=== PATIENT | female | born 1985 | race American Indian/Alaskan Native ===

== ENCOUNTER 2018-08-09 13:05 | Inpatient (IN) | payer MEDICAID ==
[2018-08-09] MEDS ORDERED: ZOFRAN IV PRN (15:41)
[2018-08-09] MEDS ORDERED: SUBLIMAZE IV PRN (15:41)
[2018-08-09] MEDS ORDERED: MINERAL OIL PO PRN (15:41)
[2018-08-09] MEDS ORDERED: BRETHINE SUB-Q PRN (15:41)
[2018-08-09] MEDS ORDERED: XYLOCAINE 2% INFILTRATI ONE (15:41)
[2018-08-09] MEDS ORDERED: BRETHINE IVP PRN (15:41)
--- NOTE | 2018-08-09 15:49 | History and Physical Report ---
<GAIL LOVELACE - Last Filed: 08/09/18 16:08> History of Present Illness Date of admission: 08/09/18 13:06 History of present illness: EDC Confirmation: 08/06/2018 Gestational Age: 15 3/7 weeks Past History : 5 Term Births: 4 Living Children: 4 Para: 4 # 1 Delivery date: 2000 Weeks Gestation: 36 Delivery type: Anesthesia type: epidural Delivery location: [place] [facility] Sex: Male weight: 7-0 # 2 Delivery date: 2003 Weeks Gestation: term Delivery type: Anesthesia type: epidural Delivery location: [place] Sex: Male weight: 7-2 # 3 Delivery date: 2006 Weeks Gestation: term Delivery type: Anesthesia type: epidural Delivery location: [place] Sex: Female weight: 7-2 Comments: elevated blood pressure # 4 Delivery date: 2009 Weeks Gestation: term Delivery type: Anesthesia type: epidural Delivery location: [place] [facility] Sex: Male weight: 7-3 Past Medical History: Negative Past Medical History Past Surgical History: Negative Past Surgical History Past Medical History Surgery (Non-securities consultant): Negative Past Surgical History Abnormal PAP: negative IZZY Exposure: negative Infertility: negative Uterine Anomaly: negative Uterine Surgery (not C/S): negative Other Gynecologic Problems: negative Social Hx: Patient is single Smoking History: Patient currently smokes every day. Patient has been counseled to quit. Infection History Hx of STD: none HIV Risk Eval: low risk Hepatitis B Risk Eval: low risk Personal hx. of genital herpes: no Partner hx. of genital herpes: no Varicella/Chicken Pox Status: Previous Disease TB Risk: no Genetic History Congenital Heart Defect: Mom: no Dad: no Fiona Disease: Mom: no Dad: no Thalassemia Mom: no Dad: yes Comments: FOB Neural Tube Defect Mom: no Dad: no Down's Syndrome Mom: no Dad: no Yobany-Sachs Mom: no Dad: no Sickle Cell Disease/Trait Mom: no Dad: no Hemophilia Mom: no Dad: no Muscular Dystrophy Mom: no Dad: no Cystic Fibrosis Mom: no Dad: no Curly Chorea Mom: no Dad: no Mental Retardation Mom: no Dad: no Fragile X Mom: no Dad: no Other Genetic/Chromosomal Disorder Mom: no Dad: no Child w/other defect Mom: no Dad: no Enviromental Exposures Xray Exposure: no Medication, drug, or alcohol use since LMP: no Chemical/Other Exposure: no Exposure to Cat Liter: no Hx of Parvovirus (Fifth Disease): no Occupational Exposure to Children: none Active Medications (reviewed today): None Current Allergies (reviewed today): No known allergies Medications and Allergies Allergies Allergy/AdvReac Type Severity Reaction Status Date / Time No Known Allergies Allergy Verified 07/27/14 08:34 Home Medications Medication Instructions Recorded Confirmed Last Taken Type Doxycycline [Vibramycin CAP] 100 mg PO BID #20 capsule 07/27/14 Unknown Rx HYDROcodone/ACETAMINOPHEN [Johnson 1 each PO Q6HR #20 tablet 07/27/14 Unknown Rx 5/325 Tablet] Ibuprofen [Motrin] 600 mg PO Q8H PRN #50 tablet 07/27/14 Unknown Rx Cyclobenzaprine [Flexeril] 10 mg PO Q12HR PRN #15 tablet 10/26/16 Unknown Rx Ibuprofen [Motrin 800 MG tab] 800 mg PO Q8HR #21 tablet 10/26/16 Unknown Rx traMADol [Ultram 50 MG tab] 50 mg PO Q4HR PRN #10 tablet 10/26/16 Unknown Rx Active Meds: Active Medications Ephedrine Sulfate (Ephedrine Sulfate) 10 mg IV Q2M PRN PRN Reason: Hypotension Fentanyl (Sublimaze) 100 mcg IV Q2H PRN PRN Reason: Labor Pain Ampicillin Sodium (Polycillin/Ns 2 Gm/100 Ml) 2 gm in 100 mls @ 100 mls/hr IV ONCE ONE; Protocol Stop: 08/09/18 17:04 Ampicillin Sodium (Ampicillin/Ns 1 Gm/50 Ml) 1 gm in 50 mls @ 100 mls/hr IV Q4H ESTELLA; Protocol Lactated Ringer's (Lactated Ringers) 1,000 mls @ 125 mls/hr IV DIRECT ESTELLA Oxytocin/Sodium Chloride (Pitocin/Ns 20 Unit/1000ml Drip) 20 units in 1,000 mls @ 125 mls/hr IV DIRECT ESTELLA Oxytocin/Sodium Chloride (Pitocin/Ns 30 Unit/500ml) 30 units in 500 mls @ 4 mls /hr IV TITR ESTELLA; Protocol Lidocaine (Xylocaine 2%) 20 ml INFILTRATI ONCE ONE Stop: 08/09/18 15:42 Mineral Oil (Mineral Oil) 30 ml PO QHS PRN PRN Reason: Constipation Ondansetron HCl (Zofran) 4 mg IV Q8H PRN PRN Reason: Nausea And Vomiting Terbutaline Sulfate (Brethine) 0.25 mg SUB-Q ONCE PRN PRN Reason: Hyperstimulation/Hypertonicity Terbutaline Sulfate (Brethine) 0.25 mg IVP ONCE PRN PRN Reason: Hyperstimulation/Hypertonicity - Vital Signs Vital signs: Vital Signs Pulse BP 78 116/84 08/09/18 13:36 08/09/18 13:36 Temp Pulse Resp BP Pulse Ox 97.9 F 78 16 116/84 08/09/18 13:56 08/09/18 13:36 08/09/18 13:56 08/09/18 13:36 Results Result Diagrams: 08/09/18 15:00 Abnormal lab results 08/09/18 Range/Units 15:00 WBC 11.4 H (4.5-11.0) K/mm3 RBC 3.39 L (3.65-5.03) M/mm3 MCV 101 H (79-97) fl MCH 34 H (28-32) pg RDW 12.9 L (13.2-15.2) % All other labs normal. HBsAg Screen Negative Negative *1 RPR Non Reactive Non Reactive *2 Rubella Antibodies, IgG 3.93 index Immune >0.99 *3 Non-immune <0.90 Equivocal 0.90 - 0.99 Immune >0.99 ABO Grouping B *4 Rh Factor Positive *5 Please note: Prior records for this patient's ABO / Rh type are not available for additional verification. Antibody Screen Negative Negative *6 WBC 8.5 x10E3/uL 3.4-10.8 *7 RBC [L] 3.17 x10E6/uL 3.77-5.28 *8 Hemoglobin [L] 10.0 g/dL 11.1-15.9 *9 Hematocrit [L] 31.1 % 34.0-46.6 *10 MCV [H] 98 fL 79-97 *11 MCH 31.5 pg 26.6-33.0 *12 MCHC 32.2 g/dL 31.5-35.7 *13 RDW 13.2 % 12.3-15.4 *14 Platelets 270 x10E3/uL 150-379 *15 Neutrophils 69 % Not Estab. *16 Lymphs 25 % Not Estab. *17 Monocytes 5 % Not Estab. *18 Eos 0 % Not Estab. *19 Basos 0 % Not Estab. *20 ! Immature Cells <No Reported Value> *21 Neutrophils (Absolute) 6.0 x10E3/uL 1.4-7.0 *22 Lymphs (Absolute) 2.1 x10E3/uL 0.7-3.1 *23 Monocytes(Absolute) 0.4 x10E3/uL 0.1-0.9 *24 Eos (Absolute) 0.0 x10E3/uL 0.0-0.4 *25 Baso (Absolute) 0.0 x10E3/uL 0.0-0.2 *26 ! Immature Granulocytes 1 % Not Estab. *27 ! Immature Grans (Abs) 0.1 x10E3/uL 0.0-0.1 *28 ! NRBC <No Reported Value> *29 Hematology Comments: <No Reported Value> *30 Tests: (2) AFP Tetra ([id number]) ! Results Report *31 ! Test Results: *Screen Negative* *32 Tests: (3) Cystic Fibrosis Profile (574489) ! CF, Screen Comment: *55 RESULTS: Negative for 32 mutations analyzed Tests: (4) HB Solu + Rflx Frac (352241) Hemoglobin (Hgb) Solubility [A] Positive Negative *57 Tests: (5) Hemoglobin Frac.w/o Solubility (654506) ! Hgb F 1.1 % 0.0-2.0 *58 ! Hgb A [L] 60.5 % 96.4-98.8 *59 ! Hgb S [H] 34.6 % 0.0 *60 ! Hgb C 0.0 % 0.0 *61 ! Hgb A2 [H] 3.8 % 1.8-3.2 *62 ! Hgb Variant <No Reported Value> *63 ! Interpretation HGAS1 *64 Hemoglobin pattern and concentration are consistent with sickle cell trait (heterozygous). Suggest clinical and hematologic correlation. Sickle Trait Interpretation Ranges Hgb A 50.0 - 70.0% Hgb S 30.0 - 45.0% Hgb A2 3.0 - 5.0%* *Hgb A2 values are seen to be increased over normal levels. This increase is typically due to interference from co-eluting Hgb S-subunits with the HPLC method and therefore the Hgb A2 interpretation ranges have been adjusted. Tests: (6) Panel 871909 ([id number]) HIV Screen 4th Generation wRfx Non Reactive Non Reactive *65 Tests: (7) HCV Ab w/Rflx to Verification ([id number]) ! HCV Ab <0.1 s/co ratio 0.0-0.9 *66 Tests: (8) Comment: ([id number]) ! Comment: SPRCS *67 Non reactive HCV antibody screen is consistent with no HCV infection, unless recent infection is suspected or other evidence exists to indicate HCV infection. Tests: (9) Urine Culture, Routine ([id number]) Urine Culture, Routine Final report *68 Tests: (10) Result ([id number]) ! Result 1 MUG *69 Mixed urogenital nayeli 25,000-50,000 colony forming units per mL <ASHLEY WILKINS - Last Filed: 08/09/18 16:13> History of Present Illness Date of examination: 08/09/18 Chief complaint: pelvic pressure and contractions, SVE 5cms Past History Past Medical History: other (see HPI) Past Surgical History: other (see HPI) LINEMAN A CLASS History: other Family/Genetic History: other (see HPI) - Obstetrical History Expected Date of Delivery: 08/06/18 Actual Gestation: 40 Week(s) 3 Day(s) : 5 Para: 4 Hx # Term Pregnancies: 4 Spontaneous Abortions: 0 Induced : 0 Number of Living Children: 4 Medications and Allergies Active Meds: Active Medications Ephedrine Sulfate (Ephedrine Sulfate) 10 mg IV Q2M PRN PRN Reason: Hypotension Fentanyl (Sublimaze) 100 mcg IV Q2H PRN PRN Reason: Labor Pain Ampicillin Sodium (Polycillin/Ns 2 Gm/100 Ml) 2 gm in 100 mls @ 100 mls/hr IV ONCE ONE; Protocol Stop: 08/09/18 16:40 Ampicillin Sodium (Ampicillin/Ns 1 Gm/50 Ml) 1 gm in 50 mls @ 100 mls/hr IV Q4HR ESTELLA; Protocol Lactated Ringer's (Lactated Ringers) 1,000 mls @ 125 mls/hr IV DIRECT ESTELLA Oxytocin/Sodium Chloride (Pitocin/Ns 20 Unit/1000ml Drip) 20 units in 1,000 mls @ 125 mls/hr IV DIRECT ESTELLA Oxytocin/Sodium Chloride (Pitocin/Ns 30 Unit/500ml) 30 units in 500 mls @ 4 mls /hr IV TITR ESTELLA; Protocol Lidocaine (Xylocaine 2%) 20 ml INFILTRATI ONCE ONE Stop: 08/09/18 15:42 Mineral Oil (Mineral Oil) 30 ml PO QHS PRN PRN Reason: Constipation Ondansetron HCl (Zofran) 4 mg IV Q8H PRN PRN Reason: Nausea And Vomiting Terbutaline Sulfate (Brethine) 0.25 mg SUB-Q ONCE PRN PRN Reason: Hyperstimulation/Hypertonicity Terbutaline Sulfate (Brethine) 0.25 mg IVP ONCE PRN PRN Reason: Hyperstimulation/Hypertonicity Review of Systems All systems: negative - Vital Signs Vital signs: Vital Signs Pulse BP 78 116/84 08/09/18 13:36 08/09/18 13:36 Temp Pulse Resp BP Pulse Ox 97.9 F 78 16 116/84 08/09/18 13:56 08/09/18 13:36 08/09/18 13:56 08/09/18 13:36 - Physical Exam Breasts: Positive: normal Cardiovascular: Regular rate Lungs: Positive: Clear to auscultation, Normal air movement Abdomen: Positive: normal appearance, soft Genitourinary (Female): Positive: normal external genitalia, normal perenium Vulva: both: normal Vagina: Positive: normal moisture Uterus: Positive: normal size, normal contour Anus/Rectum: Positive: normal perianal skin Extremities: Positive: normal Deep Tendon Reflex Grade: Normal +2 - Obstetrical FHR: category 1 Uterine Contraction Monitor Mode: External Uterine Contraction Pattern: Regular Uterine Tone Measurement Phase: Contraction Uterine Contraction Intensity: Mild Results Result Diagrams: 08/09/18 15:00 All other labs normal. Assessment and Plan 33y/o @ 40w3d arrived 5cms w/ contractions. GBS negative. Admission orders in EMR. Plan for augmentation and epidural PRN. - Patient Problems (1) 40 weeks gestation of Current Visit: Yes Status: Acute (2) Active labor at term Current Visit: Yes Status: Acute
[2018-08-09] MEDS ORDERED: PITOCin/NS 20 UNIT/1000ML DRIP 20 UNITS/1,000 ML BAG IV SCH ×2 (16:00→21:51)
[2018-08-09] MEDS ORDERED: PITOCin/NS 30 UNIT/500ML 30 UNITS/500 ML BAG IV SCH (16:00)
[2018-08-09 16:03] LABS: Hematocrit 34.3 % (30.3-42.9); Hemoglobin 11.4 gm/dl (10.1-14.3); Mean Corpuscular HGB Conc 33 % (30-34); Mean Corpuscular Hemoglobin 34 pg (28-32); Mean Corpuscular Volume 101 fl (79-97); Platelet Count 261 K/mm3 (140-440); Red Blood Count 3.39 M/mm3 (3.65-5.03); Red Cell Distribution Width 12.9 % (13.2-15.2)
[2018-08-09] MEDS ORDERED: POLYCILLIN/NS 2 GM/100 ML 2 GM/100 ML BAG IV ONE (16:05)
[2018-08-09] MEDS: LACTATED RINGERS 1,000 ML IV SCH ×2 (16:10→16:57)
--- NOTE | 2018-08-09 16:27 | Progress Note ---
Assessment and Plan patient doing well, AROM clear fluid. ivf open for epidural bolus. - Patient Problems (1) 40 weeks gestation of Current Visit: Yes Status: Acute (2) Active labor at term Current Visit: Yes Status: Acute Subjective - Subjective Date of service: 08/09/18 Principal diagnosis: IUP @ 40+3, labor Patient reports: movement normal, contractions Objective - Vital Signs Vital Signs: Vital Signs - 12hr 08/09/18 08/09/18 13:36 13:56 Temperature 97.9 F Pulse Rate 78 Respiratory 16 Rate Blood Pressure 116/84 - Exam Breasts: normal Cardiovascular: Regular rate Lungs: Clear to auscultation, Normal air movement Abdomen: Present: normal appearance, soft Vulva: both: normal Uterus: Present: normal FHR: auscultation normal, category 1 Uterine Contraction Monitor Mode: External Cervical Dilatation: 7 (vertex) Cervical Effacement Percentage: 100 station: -1 Uterine Contraction Frequency (min): 3-5 Uterine Contraction Duration: 60 Uterine Contraction Pattern: Regular Uterine Tone Measurement Phase: Contraction Uterine Contraction Intensity: Moderate Deep Tendon Reflex Grade: Normal +2 - Labs Labs: Abnormal Labs 08/09/18 15:00 WBC 11.4 H RBC 3.39 L MCV 101 H MCH 34 H RDW 12.9 L Laboratory Results - last 24 hr 08/09/18 15:00 WBC 11.4 H RBC 3.39 L Hgb 11.4 Hct 34.3 MCV 101 H MCH 34 H MCHC 33 RDW 12.9 L Plt Count 261
--- NOTE | 2018-08-09 16:52 | Anesthesia Consultation ---
Anesthesia Consult and Med Hx Date of service: 08/09/18 - Airway Anesthetic Teeth Evaluation: Good ROM Head & Neck: Adequate Mental/Hyoid Distance: Adequate Mallampati Class: Class II Intubation Access Assessment: Probably Good - Pre-Operative Health Status ASA Pre-Surgery Classification: ASA2 Proposed Anesthetic Plan: Epidural, Spinal - Pulmonary Hx Asthma: No - Cardiovascular System Hx Hypertension: No - Central Nervous System Hx Seizures: No Hx Psychiatric Problems: No - Endocrine Hx Renal Disease: No Hx Hypothyroidism: No Hx Hyperthyroidism: No - Hematic Hx Anemia: No Hx Sickle Cell Disease: Yes - Other Systems Hx Alcohol Use: No
[2018-08-09] MEDS ORDERED: NARCAN 2 MG/2 ML IV PRN (16:53)
[2018-08-09] MEDS ORDERED: fentaNYL-BUPIV 2 MCG/ML-0.125% 200 MCG/100 ML BAG EPIDURAL SCH (18:00)
[2018-08-09] MEDS ORDERED: METHERGINE IM ONE (18:52)
--- NOTE | 2018-08-09 18:54 | Procedure Note ---
OB Delivery Note - Delivery Date of Delivery: 08/09/18 ( male) Chief Development Officer: ASHLEY WILKINS Estimated blood loss: 300cc - Vaginal Delivery presentation: vertex Delivery position: OA Intrapartum events: none Delivery induction: none Delivery augmentation: rupture of membranes, pitocin Delivery monitor: external FHT, external uterine Route of delivery: Delivery placenta: spontaneous Delivery cord: 3 umbilical vessels Episiotomy: none Delivery laceration: none Anesthesia: epidural Delivery comments: Male del over intact perineum, CHATA. infant placed skin to skin on mother 's abdomen. 3 vessel cord clamped and cut. Placenta del complete and intact. Pit to IVF. no lacerations to repair. Apgars 8/9, weight 6#10, EBL 300. Mother and infant remain LDR stable. - A at 1 minute: 8 at 5 minutes: 9 Infant Gender: Male (6#10)
[2018-08-09] MEDS ORDERED: AMPICILLIN/NS 1 GM/50 ML 1 GM/50 ML BAG IV SCH (19:43)
[2018-08-09] MEDS ORDERED: SODIUM CHLORIDE FLUSH SYRINGE 10 ML IV PRN (21:51)
[2018-08-09] MEDS ORDERED: BENADRYL PO PRN (21:51)
[2018-08-09] MEDS ORDERED: DULCOLAX PR PRN (21:51)
[2018-08-09] MEDS ORDERED: TYLENOL PO PRN (21:51)
[2018-08-09] MEDS ORDERED: MILK OF MAGNESIA PO PRN (21:51)
[2018-08-09] MEDS ORDERED: DERMOPLAST TP PRN (21:51)
[2018-08-09] MEDS ORDERED: TUCKS PAD TP PRN (21:51)
[2018-08-09] MEDS ORDERED: PHENERGAN PO PRN (21:51)
[2018-08-09] MEDS ORDERED: LANSINOH TP PRN (21:51)
[2018-08-09] MEDS: NORCO 5/325 PO PRN (22:03)
[2018-08-09] MEDS: MOTRIN PO SCH (23:27)
[2018-08-10] MEDS: MOTRIN PO SCH ×4 (05:14→23:42)
--- NOTE | 2018-08-10 07:09 | Progress Note ---
Assessment and Plan - Patient Problems (1) (normal spontaneous vaginal delivery) Onset Date: ~08/09/18 Current Visit: Yes Status: Acute Plan to address problem: Continue pathway VSS FF below umb Lochia scant H&H pending. Doing well s/p vag delivery P: d/c tomorrow Subjective - Subjective Date of service: 08/10/18 (resting; worried @ NB in NICU) Principal diagnosis: Interval history: EDC Confirmation: 08/06/2018 Gestational Age: 15 3/7 weeks Past History : 5 Term Births: 4 Living Children: 4 Para: 4 # 1 Delivery date: 1999 Weeks Gestation: 36 Delivery type: Anesthesia type: epidural Delivery location: [place] Sex: Male weight: 7-0 # 2 Delivery date: 2003 Weeks Gestation: term Delivery type: Anesthesia type: epidural Delivery location: [place] Sex: Male weight: 7-2 # 3 Delivery date: 2006 Weeks Gestation: term Delivery type: Anesthesia type: epidural Delivery location: [place] Sex: Female weight: 7-2 Comments: elevated blood pressure # 4 Delivery date: 2009 Weeks Gestation: term Delivery type: Anesthesia type: epidural Delivery location: [place] [facility] Sex: Male weight: 7-3 Past Medical History: Negative Past Medical History Past Surgical History: Negative Past Surgical History Past Medical History Surgery (Non-whiskey proof reader): Negative Past Surgical History Abnormal PAP: negative IZZY Exposure: negative Infertility: negative Uterine Anomaly: negative Uterine Surgery (not C/S): negative Other Gynecologic Problems: negative Social Hx: Patient is single Smoking History: Patient currently smokes every day. Patient has been counseled to quit. Infection History Hx of STD: none HIV Risk Eval: low risk Hepatitis B Risk Eval: low risk Personal hx. of genital herpes: no Partner hx. of genital herpes: no Varicella/Chicken Pox Status: Previous Disease TB Risk: no Genetic History Congenital Heart Defect: Mom: no Dad: no Fiona Disease: Mom: no Dad: no Thalassemia Mom: no Dad: yes Comments: FOB Neural Tube Defect Mom: no Dad: no Down's Syndrome Mom: no Dad: no Yobany-Sachs Mom: no Dad: no Sickle Cell Disease/Trait Mom: no Dad: no Hemophilia Mom: no Dad: no Muscular Dystrophy Mom: no Dad: no Cystic Fibrosis Mom: no Dad: no Curly Chorea Mom: no Dad: no Mental Retardation Mom: no Dad: no Fragile X Mom: no Dad: no Other Genetic/Chromosomal Disorder Mom: no Dad: no Child w/other defect Mom: no Dad: no Enviromental Exposures Xray Exposure: no Medication, drug, or alcohol use since LMP: no Chemical/Other Exposure: no Exposure to Cat Liter: no Hx of Parvovirus (Fifth Disease): no Occupational Exposure to Children: none Active Medications (reviewed today): None Current Allergies (reviewed today): No known allergies Patient reports: appetite normal, voiding normally, pain well controlled, ambulating normally [place]: in NICU (tachypenia) Objective - Vital Signs Latest vital signs: Vital Signs Temp Pulse Resp BP Pulse Ox 08/10/18 05:26 98.5 F 68 18 107/72 98 08/10/18 00:26 98.1 F 67 20 113/58 95 08/09/18 20:24 98.5 F 65 22 110/69 99 08/09/18 20:00 98.4 F 18 18 19:43 71 121/71 1818 19:37 74 122/71 18 19:19 86 125/76 18 18:53 76 98 18 18:48 91 H 95 18 18:46 98.6 F 18 18:43 84 99 18 18:38 85 99 18 18:36 86 121/70 18 18:33 94 H 98 18 18:28 93 H 96 18 18:27 69 122/80 1818 18:24 83 121/80 1818 18:23 80 98 1818 18:21 77 117/81 18 18:18 84 112/79 97 1818 18:15 76 117/79 18 18:13 81 98 18 18:12 70 113/81 18 18:09 80 110/82 1818 18:08 78 98 18 18:06 79 94 18 18:03 87 131/74 18 18:02 87 97 09/18/18 17:57 50 L 98 1818 17:54 74 94 18/18 17:52 72 98 1818 17:51 75 108/67 18/18 17:48 64 113/67 18/18 17:46 67 98 08/09/18 17:45 74 117/71 18/18 17:42 83 117/65 18/18 17:41 77 99 1818 17:39 80 122/77 18 17:37 88 128/63 86 1818 17:36 86 97 1818 17:33 85 118/73 18 17:31 75 98 18 17:30 78 136/70 18 17:27 68 116/76 18 17:26 69 99 18 17:24 73 119/76 94 18 17:21 76 119/83 99 18 17:18 95 H 132/89 08/09/18 17:16 95 H 98 18 17:11 88 97 18 17:06 98 H 90 18 17:03 82 92 18 17:01 86 97 18 16:56 82 98 18 16:51 79 97 18 16:46 87 98 18 16:41 85 98 1818 16:36 86 99 18 16:34 93 H 132/90 18 13:56 97.9 F 16 08/09/18 13:36 78 116/84 Intake and Output 1818 18 08/10/18 22:59 06:59 14:59 Intake Total 97.917 360 Output Total 300 900 Balance -202.083 -540 Intake: IV 97.917 Lactated Ringers 1,000 ml 97.917 @ 125 mls/hr IV DIRECT ESTELLA Rx#:[id number] Intake, Free Water 360 Output: Urine 300 900 Indwelling Catheter 300 Void 900 Other: Total, Output Amount 300 900 Estimated Blood Loss 300 - Exam Breasts: Present: normal Cardiovascular: Present: Regular rate Lungs: Present: Normal air movement Abdomen: Present: normal appearance, soft Uterus: Present: normal, fundal height below umbilicus Extremities: Present: normal Deep Tendon Reflex Grade: Normal +2 Incision: Present: normal, dry, intact - Labs Labs: Abnormal lab results 08/09/18 Range/Units 15:00 WBC 11.4 H (4.5-11.0) K/mm3 RBC 3.39 L (3.65-5.03) M/mm3 MCV 101 H (79-97) fl MCH 34 H (28-32) pg RDW 12.9 L (13.2-15.2) %
[2018-08-10 07:58] LABS: Hematocrit 26.7 % (30.3-42.9)
[2018-08-10] MEDS ORDERED: PRENATAL VITAMIN PO SCH (10:00)
[2018-08-10] MEDS: NORCO 5/325 PO PRN (11:45)
[2018-08-11] MEDS: MOTRIN PO SCH (05:06)
[2018-08-11] MEDS ORDERED: BOOSTRIX IM ONE (06:00)
--- NOTE | 2018-08-11 06:23 | Discharge Summary ---
Providers - Providers Date of Admission: 08/09/18 13:06 Date of discharge: 08/11/18 (pt agrees with d/c ) Attending physician: RAYO HARRIS Primary care physician: RAYO HARRIS Hospitalization Reason for admission: active labor Delivery: Episiotomy: none Laceration: none Incision: normal Other procedures: none complications: none Discharge diagnosis: IUP at term delivered [place] baby: male (NICU) Hospital course: uncomplicated vaginal delivery Pt resting No c/o voiced VSS FF below umb Lochia small Perineum intact No s/sx of anemia Doing well s/p vag delivery. P: d/c today with instructions RTO 1 week for circ and 4 weeks for PP care. Condition at discharge: Good Disposition: DC-01 TO HOME OR SELFCARE - Discharge Diagnoses (1) (normal spontaneous vaginal delivery) Status: Acute Plan - Discharge Medications Prescriptions: Ibuprofen [Motrin 800 MG tab] 800 mg PO Q8HR PRN #30 tablet PRN Reason: Pain Lidocain2.5%/Prilocai2.5% [Emla] 5 gm TP ONCE PRN #1 tube PRN Reason: Pain - Provider Discharge Summary Activity: routine, no sex for 6 weeks, no heavy lifting 4 weeks, no strenuous exercise Diet: routine Instructions: routine Additional instructions: [] Smoking cessation referral if applicable(refer to patient education folder for contact #) [] Refer to [facility] Booklet Call your doctor immediately for: * Fever > 100.5 * Heavy vaginal bleeding ( >1 pad per hour) * Severe persistent headache * Shortness of breath * Reddened, hot, painful area to leg or breast * Drainage or odor from incision. * Keep incision clean and dry at all times and follow doctor's instructions regarding bathing/showering - Follow up plan Follow up: RAYO HARRIS MD [Primary Care Provider] - 7 Days (Congratulations! Please call [phone] to schedule your son's circumcision in 1 week and your visit in 4 weeks. Bring the EMLA cream with you to his visit. Do NOT use at home. Take medications as prescribed. Call with any concerns.)
[2018-08-11 09:06] VITALS: BP 115/69
== END 2018-08-11 09:30 | disposition home or self-care (01) | DRG 775 ==
LOC: TRG 13:05 → LD 13:06 → TRG 13:07 → OB 21:21
PROVIDERS: ADMIT Obstetrics & Gynecology; ATTEND Obstetrics & Gynecology
PROC: 10E0XZZ Delivery of Products of Conception, External Approach (ICD-10-PCS; principal; 2018-08-09)
PROC: 3E0R3BZ Introduction of Anesthetic Agent into Spinal Canal, Percutaneous Approach (ICD-10-PCS; 2018-08-09)
PROC: 00HU33Z Insertion of Infusion Device into Spinal Canal, Percutaneous Approach (ICD-10-PCS; 2018-08-09)
DX: O99.334 Smoking (tobacco) complicating childbirth (principal); Z3A.40 40 weeks gestation of pregnancy; Z37.0 Single live birth; F17.210 Nicotine dependence, cigarettes, uncomplicated
CPT/HCPCS: 36415; 85014; 85018; 85027; 86592; 86850; 86900; 86901; J2210; J2590; J7120

== ENCOUNTER 2019-09-11 18:38 | Inpatient (IN) | payer MEDICAID ==
[2019-09-11] MEDS ORDERED: ZOFRAN IV PRN (19:42)
[2019-09-11] MEDS ORDERED: SUBLIMAZE IV PRN (19:42)
[2019-09-11] MEDS ORDERED: BRETHINE SUB-Q PRN (19:42)
[2019-09-11] MEDS ORDERED: XYLOCAINE 2% INFILTRATI ONE (19:42)
[2019-09-11] MEDS ORDERED: MINERAL OIL PO PRN (19:42)
[2019-09-11] MEDS ORDERED: NALOXONE IV PRN (19:42)
[2019-09-11] MEDS ORDERED: BRETHINE IVP PRN (19:42)
[2019-09-11] MEDS ORDERED: STADOL IV PRN (19:42)
[2019-09-11] MEDS ORDERED: PITOCin/NS 30 UNIT/500ML 30 UNITS/500 ML BAG IV SCH (20:00)
[2019-09-11] MEDS ORDERED: LACTATED RINGERS 1,000 ML IV SCH (20:00)
[2019-09-11] MEDS ORDERED: PITOCin/NS 20 UNIT/1000ML DRIP 20 UNITS/1,000 ML BAG IV SCH (20:00)
[2019-09-11 21:49] LABS: Hematocrit 32.1 % (30.3-42.9); Hemoglobin 10.8 gm/dl (10.1-14.3); Mean Corpuscular HGB Conc 34 % (30-34); Mean Corpuscular Volume 101 fl (79-97); Platelet Count 276 K/mm3 (140-440); Red Blood Count 3.17 M/mm3 (3.65-5.03); Red Cell Distribution Width 13.3 % (13.2-15.2)
--- NOTE | 2019-09-11 23:08 | History and Physical Report ---
History of Present Illness Date of examination: 09/11/19 Date of admission: 09/11/19 21:04 Chief complaint: contractions History of present illness: Pt is a 34 year old -[place] female PRABHJOT 09/11/19 at 40w0d who presents with irregular contractions and advanced cervical dilation of 6 cm. She denies leakage of fluid or vaginal bleeding. She has had care at [facility] since 20 wks complicated by late entry to care, grandmultiparity, alpha thalassemia carrier status, genital herpes without lesion or prodrome, sickle cell trait with father of baby also with sickle cell trait, and undesired fertility. She is GBS negative. 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 RUNNER History: herpes (wisdom tooth extraction ) Social history: no significant social history - Obstetrical History Expected Date of Delivery: 09/11/19 Actual Gestation: 40 Week(s) 0 Day(s) : 7 Para: 5 Hx # Term Pregnancies: 5 Number of Pregnancies: 0 Spontaneous Abortions: 1 Induced : 0 Number of Living Children: 5 Medications and Allergies Allergies Allergy/AdvReac Type Severity Reaction Status Date / Time No Known Allergies Allergy Verified 07/27/14 08:34 Home Medications Medication Instructions Recorded Confirmed Last Taken Type Vit-Fe Fumar-FA [ 1 tab PO DAILY 09/11/19 09/11/19 09/10/19 History Vitamin] Active Meds: Active Medications Butorphanol Tartrate (Stadol) 2 mg IV Q2H PRN PRN Reason: Pain , Severe (7-10) Ephedrine Sulfate (Ephedrine Sulfate) 10 mg IV Q2M PRN PRN Reason: Hypotension Fentanyl (Sublimaze) 100 mcg IV Q2H PRN PRN Reason: Labor Pain Oxytocin/Sodium Chloride (Pitocin/Ns 20 Unit/1000ml Drip) 20 units in 1,000 mls @ 125 mls/hr IV DIRECT ESTELLA Oxytocin/Sodium Chloride (Pitocin/Ns 30 Unit/500ml) 30 units in 500 mls @ 4 mls/hr IV TITR ESTELLA; Protocol Last Admin: 09/11/19 21:35 Dose: 4 mls/hr, 4 mls/hr Documented by: Lactated Ringer's (Lactated Ringers) 1,000 mls @ 125 mls/hr IV DIRECT ESTELLA Last Admin: 09/11/19 21:20 Dose: 125 mls/hr Documented by: Mineral Oil (Mineral Oil) 30 ml PO QHS PRN PRN Reason: Constipation Naloxone HCl (Narcan 0.4 Mg/1 Ml) 0.1 mg IV Q2MIN PRN PRN Reason: Res Rate </= 8 or 02 SAT < 92% Ondansetron HCl (Zofran) 4 mg IV Q8H PRN PRN Reason: Nausea And Vomiting Terbutaline Sulfate (Brethine) 0.25 mg SUB-Q ONCE PRN PRN Reason: Hyperstimulation/Hypertonicity Terbutaline Sulfate (Brethine) 0.25 mg IVP ONCE PRN PRN Reason: Hyperstimulation/Hypertonicity Review of Systems All systems: negative - Vital Signs Vital signs: Vital Signs Pulse BP 98 H 117/71 09/11/19 19:23 09/11/19 19:23 Temp Pulse Resp BP Pulse Ox 96.5 F L 102 H 18 110/78 99 09/11/19 20:56 09/11/19 22:40 09/11/19 20:56 09/11/19 22:37 09/11/19 22:40 - Physical Exam Breasts: Positive: deferred Cardiovascular: Regular rate Lungs: Positive: Clear to auscultation Abdomen: Positive: soft (gravid ) Genitourinary (Female): Positive: normal external genitalia Uterus: Positive: enlarged (gravid) Extremities: Positive: normal - Obstetrical FHR: auscultation normal Uterine Contraction Monitor Mode: External Cervical Dilatation: 8 Cervical Effacement Percentage: 80 station: 0 Uterine Contraction Pattern: Irregular Uterine Tone Measurement Phase: Resting Uterine Contraction Intensity: Moderate Results Result Diagrams: 09/11/19 20:55 Abnormal lab results 09/11/19 Range/Units 20:55 RBC 3.17 L (3.65-5.03) M/mm3 MCV 101 H (79-97) fl MCH 34 H (28-32) pg All other labs normal. Assessment and Plan A: IUP at 40w0d Transitional Labor GBS Negative Genital Herpes without lesion or prodrome P: Admit to labor an delivery Routine intrapartum care Anticipate vaginal delivery
--- NOTE | 2019-09-11 23:13 | Procedure Note ---
OB Delivery Note - Delivery Date of Delivery: 09/11/19 Surgeon: ERMA PAULSON Estimated blood loss: other (400 mL) - Vaginal Delivery presentation: vertex Delivery position: OA Delivery induction: none Delivery augmentation: rupture of membranes, pitocin Delivery monitor: external FHT, external uterine Route of delivery: Delivery placenta: spontaneous Episiotomy: none Delivery laceration: other (Labial abrasions, hemostatic without repair ) Anesthesia: none - A at 1 minute: 8 at 5 minutes: 9 Gender: Female (3019g (6lb 10 oz) @ 2251 pm)
[2019-09-11] MEDS ORDERED: TORADOL IV PRN (23:15)
[2019-09-12] MEDS ORDERED: PHENERGAN PR PRN (01:00)
[2019-09-12] MEDS ORDERED: BENADRYL PO PRN (01:00)
[2019-09-12] MEDS ORDERED: DULCOLAX PR PRN (01:00)
[2019-09-12] MEDS ORDERED: SODIUM CHLORIDE FLUSH SYRINGE 10 ML IV NR (01:00)
[2019-09-12] MEDS ORDERED: TYLENOL PO PRN (01:00)
[2019-09-12] MEDS ORDERED: DERMOPLAST TP PRN (01:00)
[2019-09-12] MEDS ORDERED: ZOFRAN IV PRN (01:00)
[2019-09-12] MEDS ORDERED: MILK OF MAGNESIA PO PRN (01:00)
[2019-09-12] MEDS ORDERED: PHENERGAN PO PRN (01:00)
[2019-09-12] MEDS ORDERED: LANSINOH TP PRN ×2 (01:00)
[2019-09-12] MEDS ORDERED: TUCKS PAD TP PRN (01:00)
[2019-09-12] MEDS: NORCO 5/325 PO PRN ×2 (01:23→15:55)
[2019-09-12] MEDS ORDERED: BOOSTRIX IM ONE (06:00)
[2019-09-12] MEDS ORDERED: M-M-R II VACCINE SUB-Q ONE (06:00)
[2019-09-12] MEDS: IBUPROFEN PO SCH ×4 (06:01→23:29)
--- NOTE | 2019-09-12 08:51 | Progress Note ---
Assessment and Plan A/P PPD1 routine PP care check CBC today Subjective - Subjective Date of service: 09/12/19 Principal diagnosis: s/p Patient reports: appetite normal, voiding normally, pain well controlled, flatus, ambulating normally : doing well Objective - Vital Signs Latest vital signs: Vital Signs Temp Pulse Resp BP BP Pulse Ox 09/12/19 07:33 98.1 F 66 16 114/71 97 09/12/19 04:59 98.0 F 69 20 112/69 99 09/12/19 01:10 98.6 F 68 20 125/71 100 09/12/19 00:33 97.1 F L 77 18 121/76 09/12/19 00:18 73 119/75 09/12/19 00:03 85 126/79 09/11/19 23:48 74 124/77 09/11/19 23:33 80 123/71 09/11/19 23:26 18 09/11/19 23:07 96.7 F L 100 H 18 108/73 108/73 09/11/19 22:49 97 H 69 L 09/11/19 22:45 85 99 09/11/19 22:40 102 H 99 09/11/19 22:38 96 H 0 L 09/11/19 22:37 137 H 110/78 09/11/19 22:28 90 100 09/11/19 22:23 80 100 09/11/19 22:18 91 H 99 09/11/19 22:13 78 100 09/11/19 22:08 85 100 09/11/19 22:06 94 H 118/78 09/11/19 22:03 85 100 09/11/19 21:58 83 100 09/11/19 21:53 77 99 09/11/19 21:48 80 100 09/11/19 21:43 80 98 09/11/19 21:38 83 100 09/11/19 21:33 83 98 09/11/19 21:28 78 100 09/11/19 21:23 78 100 09/11/19 21:17 80 99 09/11/19 21:12 77 99 09/11/19 20:56 96.5 F L 83 18 128/72 100 09/11/19 20:38 85 111/77 09/11/19 20:07 87 110/74 09/11/19 19:24 98.3 F 98 H 20 117/71 09/11/19 19:23 98 H 117/71 Intake and Output 09/11/19 09/12/19 09/12/19 23:59 07:59 15:59 Intake Total 1 Balance 1 Intake: IV 1 PITOCin/NS 30 UNIT/500ML 1 30 units In 500 ml @ 4 mls/hr IV TITR ESTELLA Rx#: [id number] Other: # Voids Void 1 Weight 77.111 kg Estimated Blood Loss 400 - Exam Breasts: Present: normal Cardiovascular: Present: Regular rate, Normal S1 Lungs: Present: Clear to auscultation, Normal air movement Abdomen: Present: normal appearance, soft, normal bowel sounds. Absent: distention, tenderness, guarding Vulva: both: normal Uterus: Present: normal, firm, fundal height below umbilicus. Absent: bogginess, tenderness Extremities: Present: normal Deep Tendon Reflex Grade: Normal +2 - Labs Labs: Abnormal lab results 09/11/19 Range/Units 20:55 RBC 3.17 L (3.65-5.03) M/mm3 MCV 101 H (79-97) fl MCH 34 H (28-32) pg
[2019-09-12] MEDS: FEOSOL PO SCH ×2 (10:00→23:29)
[2019-09-12] MEDS: COLACE PO SCH ×2 (10:00→23:29)
[2019-09-12 12:11] VITALS: BP 125/79
[2019-09-12 12:18] LABS: Hematocrit 25.8 % (30.3-42.9); Hemoglobin 8.6 gm/dl (10.1-14.3)
== END 2019-09-13 00:30 | disposition home or self-care (01) | DRG 774 ==
LOC: TRG 18:38 → LD 21:04 → OB 09-12 00:59
PROVIDERS: ADMIT Obstetrics & Gynecology; ATTEND Obstetrics & Gynecology
PROC: 10E0XZZ Delivery of Products of Conception, External Approach (ICD-10-PCS; principal; 2019-09-11)
PROC: 0UQMXZZ Repair Vulva, External Approach (ICD-10-PCS; 2019-09-11)
PROC: 3E0234Z Introduction of Serum, Toxoid and Vaccine into Muscle, Percutaneous Approach (ICD-10-PCS; 2019-09-12)
DX: O98.32 Other infections with a predominantly sexual mode of transmission complicating childbirth (principal); A60.00 Herpesviral infection of urogenital system, unspecified; O70.0 First degree perineal laceration during delivery; Z3A.40 40 weeks gestation of pregnancy; Z37.0 Single live birth; Z23 Encounter for immunization
CPT/HCPCS: 36415; 85014; 85018; 85027; 86592; 86850; 86900; 86901; 90471; 90715; G0378; J1885; J2590; J7120

== ENCOUNTER 2020-07-06 10:07 | Emergency (ER) | payer SELFPAY ==
[2020-07-06 10:17] VITALS: BP 113/73
--- NOTE | 2020-07-06 10:38 | Emergency Department Report ---
ED HPI - General Chief complaint: Vaginal Bleeding Stated complaint: POSS MISCARRIAGE Time Seen by Provider: 07/06/20 10:22 Source: patient Mode of arrival: Ambulatory Limitations: No Limitations - History of Present Illness Initial comments: This is a pleasant 35-year-old G3, L2 female presents the emergency department approximately 8 weeks with chief complaint of heavy vaginal bleeding that started yesterday and has since resolved. She reports she did have some lower abdominal cramping during this time that she rates as severe but this has also resolved. Her last menstrual cycle was April 22 to April 28 and normal. She took a test in May and it was positive. She had not yet seen an SENIOR PROGRAM ANALYST. She has a history of sickle cell trait. She denies any associated fever, chills, night sweats, headache, dizziness, blurry vision, nausea, vomiting, diarrhea, chest pain, shortness of breath. - Related Data Home Medications Medication Instructions Recorded Confirmed Last Taken Vit-Fe Fumar-FA [ 1 tab PO DAILY 09/11/19 09/11/19 09/10/19 Vitamin] Previous Rx's Medication Instructions Recorded Last Taken Type Acetaminophen [Acetaminophen TAB] 650 mg PO Q6HR PRN #30 tablet 07/06/20 Unknown Rx Allergies Allergy/AdvReac Type Severity Reaction Status Date / Time No Known Allergies Allergy Verified 07/27/14 08:34 ED Review of Systems ROS: Stated complaint: POSS MISCARRIAGE Other details as noted in HPI Comment: All other systems reviewed and negative Constitutional: denies: chills, fever Eyes: denies: eye pain, eye discharge, vision change ENT: denies: ear pain, throat pain Respiratory: denies: cough, shortness of breath, wheezing Cardiovascular: denies: chest pain, palpitations Endocrine: no symptoms reported Gastrointestinal: as per HPI, abdominal pain. denies: nausea, diarrhea Genitourinary: as per HPI, abnormal menses. denies: urgency, dysuria, discharge Musculoskeletal: denies: back pain, joint swelling, arthralgia Skin: denies: rash, lesions Neurological: denies: headache, weakness, paresthesias Psychiatric: denies: anxiety, depression Hematological/Lymphatic: denies: easy bleeding, easy bruising ED Past Medical Hx - Past Medical History Previous Medical History?: Yes Hx Hypertension: No Hx Congestive Heart Failure: No Hx Diabetes: No Hx Deep Vein Thrombosis: No Hx Renal Disease: No Hx Sickle Cell Disease: Yes (trait) Hx Seizures: No Hx Asthma: No Hx COPD: No Hx HIV: No Additional medical history: Vaginal delivery x 2 - Surgical History Past Surgical History?: No - Social History Smoking Status: Never Smoker Substance Use Type: None - Medications Home Medications: Home Medications Medication Instructions Recorded Confirmed Last Taken Type Vit-Fe Fumar-FA [ 1 tab PO DAILY 09/11/19 09/11/19 09/10/19 History Vitamin] Acetaminophen [Acetaminophen TAB] 650 mg PO Q6HR PRN #30 tablet 07/06/20 Unknown Rx ED Physical Exam - General Limitations: No Limitations General appearance: alert, in no apparent distress - Head Head exam: Present: atraumatic, normocephalic - Eye Eye exam: Present: normal appearance, PERRL, EOMI Pupils: Present: normal accommodation - ENT ENT exam: Present: normal exam, normal orophraynx, mucous membranes moist - Neck Neck exam: Present: normal inspection, full ROM. Absent: tenderness, meningismus, lymphadenopathy - Respiratory Respiratory exam: Present: normal lung sounds bilaterally. Absent: respiratory distress, wheezes, rales, rhonchi, stridor, chest wall tenderness - Cardiovascular Cardiovascular Exam: Present: regular rate, normal rhythm, normal heart sounds. Absent: systolic murmur, diastolic murmur, rubs, gallop - GI/Abdominal GI/Abdominal exam: Present: soft, normal bowel sounds. Absent: distended, tenderness, guarding, rebound, rigid - Extremities Exam Extremities exam: Present: normal inspection, full ROM, normal capillary refill. Absent: tenderness, calf tenderness - Back Exam Back exam: Present: normal inspection, full ROM. Absent: tenderness, CVA tenderness (R), CVA tenderness (L) - Neurological Exam Neurological exam: Present: alert, oriented X3 - Psychiatric Psychiatric exam: Present: normal affect, normal mood - Skin Skin exam: Present: warm, dry, intact, normal color. Absent: rash ED Course Vital Signs 07/06/20 07/06/20 10:14 10:31 Temperature 98.1 F Pulse Rate 115 H Respiratory 20 18 Rate Blood Pressure 113/73 O2 Sat by Pulse 97 99 Oximetry - Consultations Consultation #1: 07/06/20 14:02 I spoke with SENIOR PROGRAM ANALYST Dr. Swapna Paulson who recommended the patient call her office on Wednesday for a follow-up visit that day for repeat hCG and possibly ultrasound. ED Medical Decision Making - Lab Data Result diagrams: 07/06/20 10:22 Lab Results 07/06/20 07/06/20 07/06/20 Range/Units 10:22 10:22 10:22 WBC 7.6 (4.5-11.0) K/mm3 RBC 3.09 L (3.65-5.03) M/mm3 Hgb 10.4 (10.1-14.3) gm/dl Hct 29.9 L (30.3-42.9) % MCV 97 (79-97) fl MCH 34 H (28-32) pg MCHC 35 H (30-34) % RDW 13.4 (13.2-15.2) % Plt Count 252 (140-440) K/mm3 Lymph % (Auto) 25.9 (13.4-35.0) % [place] % (Auto) 5.3 (0.0-7.3) % Eos % (Auto) 0.6 (0.0-4.3) % Baso % (Auto) 0.8 (0.0-1.8) % Lymph # 2.0 (1.2-5.4) K/mm3 [place] # 0.4 (0.0-0.8) K/mm3 Eos # 0.0 (0.0-0.4) K/mm3 Baso # 0.1 (0.0-0.1) K/mm3 Seg Neutrophils % 67.4 (40.0-70.0) % Seg Neutrophils # 5.1 (1.8-7.7) K/mm3 HCG, Quant 5068 H (0-4) mIU/mL Blood Type B POSITIVE - Radiology Data Radiology results: report reviewed, image reviewed Ultrasound Report Signed Patient: BRAULIO RENDON MR#: [id number] : 1985 Acct:[id number] Age/Sex: 35 / F ADM Date: 07/06/20 Loc: ED Attending Dr: Ordering Physician: SAGE WHITT Date of Service: 07/06/20 Procedure(s): US OB <= 14 weeks fetus Accession Number(s): [id number] cc: SAGE WHITT ULTRASOUND OBSTETRIC INDICATION / CLINICAL INFORMATION: Vaginal bleeding. TECHNIQUE: Transabdominal and Transvaginal. COMPARISON: None available. FINDINGS: The uterus measures 8.2 x 4.5 x 6.1 cm. There is endometrial stripe measures 2.0 cm and contains solid material with blood flow. No gestational sac or yolk sac is identified. There is minimal free fluid in the pelvis without significant blood products or large volume of fluid. The left ovary appears normal. The right ovary is not visualized. IMPRESSION: No intrauterine or gestational sac identified. Thickened endometrium with internal solid products with flow could indicate some retained products of conception. Signer Name: Brayden Novoa MD Signed: 07/06/2020 1:28 PM Workstation Name: [id number] Transcribed By: RANDY Dictated By: Brayden Novoa MD Electronically Authenticated By: Brayden Novoa MD Signed Date/Time: 07/06/20 5106 - Medical Decision Making Patient is nontoxic in no acute distress. Vitals are stable. Her hCG was elevated at 5000. Her blood type is B+ and no RhoGam is indicated. She is hemodynamically stable with a normal H&H. She had very minimal bleeding at this time. I spoke with SENIOR PROGRAM ANALYST who recommended follow-up on Wednesday for repeat hCG and likely repeat ultrasound. Patient was given ectopic precautions including heavy bleeding greater than 1 pad an hour, dizziness, weakness or any other changing or worsening symptoms to return the emerge department really. She verbalized understanding of the diagnosis, treatment plan and follow-up instructions and all of her questions were answered. - Differential Diagnosis Incomplete , ectopic , threatened miscarriage Critical care attestation.: If time is entered above; I have spent that time in minutes in the direct care of this critically ill patient, excluding procedure time. ED Disposition Clinical Impression: Threatened miscarriage Disposition: DC-01 TO HOME OR SELFCARE Is pt being admited?: No Condition: Stable Instructions: Threatened Miscarriage (ED) Prescriptions: Acetaminophen [Acetaminophen TAB] 650 mg PO Q6HR PRN #30 tablet PRN Reason: Pain Referrals: PRIMARY CARE, [Primary Care Provider] - 3-5 Days SWAPNA PAULSON MD [Staff Physician] - 3-5 Days Time of Disposition: 14:05
[2020-07-06 10:53] LABS: Basophils # (Auto) 0.1 K/mm3 (0.0-0.1); Basophils % (Auto) 0.8 % (0.0-1.8); Eosinophils % (Auto) 0.6 % (0.0-4.3); Hematocrit 29.9 % (30.3-42.9); Hemoglobin 10.4 gm/dl (10.1-14.3); Lymphocytes % (Auto) 25.9 % (13.4-35.0); Mean Corpuscular HGB Conc 35 % (30-34); Mean Corpuscular Volume 97 fl (79-97); Monocytes # (Auto) 0.4 K/mm3 (0.0-0.8); Monocytes % (Auto) 5.3 % (0.0-7.3); Platelet Count 252 K/mm3 (140-440); Red Blood Count 3.09 M/mm3 (3.65-5.03); Red Cell Distribution Width 13.4 % (13.2-15.2)
--- NOTE | 2020-07-06 13:33 | Ultrasound Report ---
ULTRASOUND OBSTETRIC INDICATION / CLINICAL INFORMATION: Vaginal bleeding. TECHNIQUE: Transabdominal and Transvaginal. COMPARISON: None available. FINDINGS: The uterus measures 8.2 x 4.5 x 6.1 cm. There is endometrial stripe measures 2.0 cm and contains chas d material with blood flow. No gestational sac or yolk sac is identified. There is minimal free fluid in the pelvis without significant blood products or large volume of fluid. The left ovary appears normal. The right ovary is not visualized. IMPRESSION: No intrauterine or gestational sac identified. Thickened endometrium with internal solid pr oducts with flow could indicate some retained products of conception. Signer Name: Brayden Novoa MD Signed: 07/06/2020 1:28 PM Workstation Name: [id number]
== END 2020-07-06 14:28 | disposition home or self-care (01) ==
LOC: ED 10:07
DX: O20.0 Threatened abortion (principal); D57.3 Sickle-cell trait
CPT/HCPCS: 36415; 76801; 76817; 84702; 85025; 86900; 86901

== ENCOUNTER 2020-07-11 10:02 | Emergency (ER) | payer SELFPAY ==
--- NOTE | 2020-07-11 10:58 | Event Note ---
ED Screening Note Date of service: 07/11/20 Time: 10:56 ED Screening Note: This initial assessment/diagnostic orders/clinical plan/treatment(s) is/are subject to change based on patients health status, clinical progression and re- assessment by fellow clinical providers in the ED. Further treatment and workup at subsequent clinical providers discretion. Patient/guardian urged not to elope from the ED as their condition may be serious if not clinically assessed and managed. Initial orders include:
[2020-07-11 11:01] LABS: Basophils % (Auto) 0.7 % (0.0-1.8); Eosinophils % (Auto) 0.3 % (0.0-4.3); Hematocrit 28.6 % (30.3-42.9); Hemoglobin 9.5 gm/dl (10.1-14.3); Lymphocytes # (Auto) 1.9 K/mm3 (1.2-5.4); Lymphocytes % (Auto) 29.7 % (13.4-35.0); Mean Corpuscular HGB Conc 33 % (30-34); Mean Corpuscular Volume 98 fl (79-97); Monocytes # (Auto) 0.3 K/mm3 (0.0-0.8); Monocytes % (Auto) 5.2 % (0.0-7.3); Platelet Count 284 K/mm3 (140-440); Red Blood Count 2.91 M/mm3 (3.65-5.03); Red Cell Distribution Width 13.6 % (13.2-15.2)
--- NOTE | 2020-07-11 11:10 | Emergency Department Report ---
Chief Complaint: Vaginal Bleeding Stated Complaint: MISCARRIAGE Time Seen by Provider: 07/11/20 11:07 - HPI History of Present Illness: Is a 35-year-old G7, P6 female. Who returns to the ED after being evaluated here 3 days ago for vaginal bleeding. Patient states she was told to return to get blood work. She states that bleeding and has subsided and is now about a p ink discharge. She denies fever/chills/nausea vomiting/fatigue/abdominal pain/pelvic pain/dysuria any other symptoms. Patient states that she called the HOUSEHOLD COORDINATOR she was given to make an appointment but because her Medicaid is not here she was unable to keep the appointment so she came here for blood work. - ROS Review of Systems: As noted in HPI - Exam Vital Signs: Vital Signs 07/11/20 10:10 Temperature 98.2 F Pulse Rate 76 Respiratory 18 Rate Blood Pressure 118/73 O2 Sat by Pulse 97 Oximetry Physical Exam: GENERAL: Alert and oriented x3, no apparent distress, Normal Gait, atraumatic. HEAD: Head is normocephalic and a-traumatic. ABDOMEN: No organomegaly was noted,Positive bowel sounds, soft, and non- distended. . Nontender to palpation on all Quadrants, NO CVA tenderness. SKIN: Warm and dry, No lesions, No ulceration or induration present. MSE screening note: Focused history and physical exam performed. Due to findings the following was ordered: ED Medical Decision Making - Lab Data Result diagrams: 07/11/20 10:43 Laboratory Last Values WBC 6.4 K/mm3 (4.5-11.0) 07/11/20 10:43 RBC 2.91 M/mm3 (3.65-5.03) L 07/11/20 10:43 Hgb 9.5 gm/dl (10.1-14.3) L 07/11/20 10:43 Hct 28.6 % (30.3-42.9) L 07/11/20 10:43 MCV 98 fl (79-97) H 07/11/20 10:43 MCH 33 pg (28-32) H 07/11/20 10:43 MCHC 33 % (30-34) 07/11/20 10:43 RDW 13.6 % (13.2-15.2) 07/11/20 10:43 Plt Count 284 K/mm3 (140-440) 07/11/20 10:43 Lymph % (Auto) 29.7 % (13.4-35.0) 07/11/20 10:43 [place] % (Auto) 5.2 % (0.0-7.3) 07/11/20 10:43 Eos % (Auto) 0.3 % (0.0-4.3) 07/11/20 10:43 Baso % (Auto) 0.7 % (0.0-1.8) 07/11/20 10:43 Lymph # 1.9 K/mm3 (1.2-5.4) 07/11/20 10:43 [place] # 0.3 K/mm3 (0.0-0.8) 07/11/20 10:43 Eos # 0.0 K/mm3 (0.0-0.4) 07/11/20 10:43 Baso # 0.0 K/mm3 (0.0-0.1) 07/11/20 10:43 Seg Neutrophils % 64.1 % (40.0-70.0) 07/11/20 10:43 Seg Neutrophils # 4.1 K/mm3 (1.8-7.7) 07/11/20 10:43 HCG, Quant 401.3 mIU/mL (0-4) H 07/11/20 10:43 - Medical Decision Making This 35-year-old female who presents w to the ED for quantitative repeat. I reviewed report from last visit. Repeat quant is much lower than the last visit which was 5000. I reviewed ultrasound from last visit which showed no intrauterine . At this time I discussed with patient that she had had a complete miscarriage as the quant is decreased. I discussed with her to follow-up with her HOUSEHOLD COORDINATOR as referred. Vital signs are normal she is in no acute distress ED Disposition for MSE Clinical Impression: Complete spontaneous Disposition: DC-01 TO HOME OR SELFCARE Is pt being admited?: No Does the pt Need Aspirin: No Condition: Stable Instructions: Spontaneous Miscarriage (ED) Additional Instructions: Follow-up with HOUSEHOLD COORDINATOR as discussed. Please return to ED if you have any new or worsening symptoms. Referrals: PRIMARY CARE, [Primary Care Provider] - 3-5 Days [facility] [Provider Group] - 3-5 Days [facility] [Provider Group] - 3-5 Days Forms: Work/School Release Form(ED) Time of Disposition: 12:09
[2020-07-11 12:25] VITALS: BP 137/77
== END 2020-07-11 12:25 | disposition home or self-care (01) ==
LOC: ED 10:02
DX: O03.9 Complete or unspecified spontaneous abortion without complication (principal); Z3A.01 Less than 8 weeks gestation of pregnancy
CPT/HCPCS: 36415; 84702; 85025; 99283

== ENCOUNTER 2021-12-19 04:57 | Inpatient (IN) | payer SELFPAY ==
[2021-12-19] MEDS ORDERED: fentaNYL 100 MCG/2 ML INJ ONE (05:12)
[2021-12-19] MEDS ORDERED: METHYLERGONOVINE MALEATE 0.2 MG/ML VIAL IM PRN (05:22)
[2021-12-19] MEDS ORDERED: fentaNYL 100 MCG/2 ML INJ IV PRN (05:22)
[2021-12-19] MEDS ORDERED: CARBOPROST TROMETHAMINE 250 MCG/1 ML INJ IM PRN (05:22)
[2021-12-19] MEDS ORDERED: ePHEDrine SULFATE 50 MG/1 ML INJ IV PRN (05:22)
[2021-12-19] MEDS ORDERED: ACETAMINOPHEN 325 MG TAB PO PRN ×2 (05:22→05:40)
[2021-12-19] MEDS ORDERED: LOPERAMIDE 2 MG CAP PO PRN (05:22)
[2021-12-19] MEDS ORDERED: BUTORPHANOL 2 MG/1 ML INJ IV PRN (05:22)
[2021-12-19] MEDS ORDERED: LACTATED RINGERS 1,000 ML IV SCH (05:30)
[2021-12-19] MEDS ORDERED: WITCH HAZEL/ GLYCERIN PAD TP PRN (05:40)
[2021-12-19] MEDS ORDERED: oxyCODONE /ACETAMINOPHEN 5-325MG TAB PO PRN (05:40)
[2021-12-19] MEDS ORDERED: PROMETHAZINE 25 MG TAB PO PRN (05:40)
[2021-12-19] MEDS ORDERED: LANOLIN/ZINC/DIMETHICONE (LANSINOH) 7 GM TP PRN (05:40)
[2021-12-19] MEDS ORDERED: HYDROcodone/ACETAMINOPHEN 5-325 MG TAB PO PRN (05:40)
[2021-12-19] MEDS ORDERED: MAGNESIUM HYDROXIDE (MOM) ORAL LIQD UDC PO PRN (05:40)
[2021-12-19] MEDS ORDERED: ONDANSETRON 4 MG/2 ML INJ IV PRN (05:40)
[2021-12-19] MEDS ORDERED: diphenhydrAMINE 25 MG CAP PO PRN (05:40)
--- NOTE | 2021-12-19 05:40 | History and Physical Report ---
History of Present Illness Date of examination: 12/19/21 Date of admission: 12/19/21 04:57 Chief complaint: Stillbirth History of present illness: 36 y/o at ~32 weeks presents to [facility] via EMS after home of fetus that delivered "en caul" along with placenta. She reports intermittent VB for the past 3 weeks. She had no care. 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 Family/Genetic History: none Social history: no significant social history - Obstetrical History Expected Date of Delivery: 02/13/22 Actual Gestation: 32 Week(s) 0 Day(s) : 7 Para: 6 Medications and Allergies Allergies Allergy/AdvReac Type Severity Reaction Status Date / Time No Known Allergies Allergy Verified 07/27/14 08:34 Home Medications Medication Instructions Recorded Confirmed Last Taken Type Vit-Fe Fumar-FA [ 1 tab PO DAILY 09/11/19 09/11/19 09/10/19 History Vitamin] Acetaminophen [Acetaminophen TAB] 650 mg PO Q6HR PRN #30 tablet 07/06/20 Unknown Rx Active Meds: Active Medications Acetaminophen (Acetaminophen 325 Mg Tab) 650 mg PO Q4H PRN PRN Reason: Pain, Mild (1-3) Butorphanol Tartrate (Butorphanol 2 Mg/1 Ml Inj) 1 mg IV Q2H PRN PRN Reason: Pain, Moderate(4-6) LABOR PAIN Carboprost Tromethamine (Carboprost Tromethamine 250 Mcg/1 Ml Inj) 250 mcg IM ONCE PRN PRN Reason: Uterine Bleeding Ephedrine Sulfate (Ephedrine Sulfate 50 Mg/1 Ml Inj) 10 mg IV Q2M PRN PRN Reason: Hypotension Fentanyl (Fentanyl 100 Mcg/2 Ml Inj) 100 mcg IV Q2H PRN PRN Reason: Pain,Severe (7-10) LABOR PAIN Oxytocin/Sodium Chloride (Pitocin/Ns 30 Unit/500ml) 30 units in 500 mls @ 2 mls/hr IV TITR ESTELLA; Protocol Lactated Ringer's (Lactated Ringers) 1,000 mls @ 125 mls/hr IV DIRECT ESTELLA Oxytocin/Sodium Chloride (Pitocin/Ns 30 Unit/500ml) 30 units in 500 mls @ 40 mls/hr IV TITR ESTELLA; Protocol Loperamide HCl (Loperamide 2 Mg Cap) 2 mg PO ONCE PRN PRN Reason: give with Hemabate Methylergonovine Maleate (Methylergonovine Maleate 0.2 Mg/Ml Vial) 0.2 mg IM ONCE PRN PRN Reason: Uterine Bleeding Review of Systems All systems: negative - Vital Signs Vital signs: Vital Signs Pulse Pulse Ox 77 98 12/19/21 05:01 12/19/21 05:01 Temp Pulse Resp BP Pulse Ox 70 99 12/19/21 05:36 12/19/21 05:36 - Physical Exam Breasts: Positive: normal Cardiovascular: Regular rate Lungs: Positive: Normal air movement Abdomen: Positive: normal appearance Genitourinary (Female): Positive: normal external genitalia Vulva: both: normal Vagina: Positive: normal moisture Uterus: Positive: enlarged Adnexa: both: normal Anus/Rectum: Positive: normal perianal skin Extremities: Positive: normal - Obstetrical FHR: category 2 (Fetus delivered "en caul" and placenta already out upon arrival. Gestational sac opened and meconium stained placenta and umbilicus. Placenta suspicious for abruption.) Results All other labs normal. Ultrasound: other (Bedside transabdominal US performed by wa showed no retained POC.) Assessment and Plan - Patient Problems (1) Stillbirth with antepartum Current Visit: Yes Status: Acute Plan to address problem: - S/P home delivery "en caul". - Neonatology evaluated the fetus and PEA noted. - Placental abruption is suspected as the cause of the delivery and stillbirth. - Abruption labs and UDS ordered.
--- NOTE | 2021-12-19 05:52 | Procedure Note ---
OB Delivery Note - Delivery Date of Delivery: 12/19/21 Surgeon: GRECIA BARTON Estimated blood loss: 300cc - Vaginal Delivery presentation: unknown Intrapartum events: no care, meconium, abruption, precipitous labor- <3hr, other(please specify) (Stillbirth) Delivery monitor: none Route of delivery: Delivery placenta: spontaneous Delivery cord: 3 umbilical vessels Episiotomy: none Delivery laceration: none Delivery comments: Stillbirth. Fetus delivere "en caul". Neonatology in attendance. - Infant A at 1 minute: 0 at 5 minutes: 0 Infant Gender: Female
[2021-12-19] MEDS ORDERED: OXYTOCIN DRIP 30 UNITS/500 ML BAG IV SCH ×2 (06:00)
--- NOTE | 2021-12-19 06:55 | Event Note ---
Date: 12/19/21 0510 called to L&D to evaluate born @ home;upon arrival, with HR 30-40 bpm, pale, cold, no respiratory effort, no movement; Per EMS: 0430 arrived to find mom who said she felt the baby coming; mom delivered baby en caul @ 0435; no movement noted; left between mom's legs en caul and transported to [facility]; arrived with en caul and placenta on stretcher between mom's legs 0450: NICU charge nurse called ( see nursing note) 0505: placed in basin and bag ruptured per MD in attendance 0515: called Dr. Mc after evaluating ; decision made not to proceed with heroic resuscitative interventions given length of time since delivery of infant and placenta. 0520: infant wrapped in blanket and given to mom to hold; upon questioning, Mom stated her LMP was April 2021 and she had received no care; she also reported significant vaginal bleeding x 2-3 weeks; she stated she had tried to call "[facility]" multiple times to obtain insurance and medical help but was unable to get help; infant's condition explained to mom and she stated understanding. 0540: no detectable HR. Precious Oliveira, [employer]
[2021-12-19 07:02] LABS: Creatinine,Urine 136.5 mg/dL (0.1-20.0)
[2021-12-19 07:13] LABS: Amphetamine Screen,Urine PRESUMPTIVE NEGATIVE; Benzodiazepines Screen,Urine PRESUMPTIVE NEGATIVE; Cannabinoid Screen,Urine PRESUMPTIVE POSITIVE; Cocaine Screen,Urine PRESUMPTIVE NEGATIVE; Methadone Screen,Urine PRESUMPTIVE NEGATIVE; Opiate Screen,Urine PRESUMPTIVE NEGATIVE
[2021-12-19 07:17] LABS: Hematocrit 28.6 % (30.3-42.9); Hemoglobin 9.3 gm/dl (10.1-14.3); Mean Corpuscular HGB Conc 33 % (30-34); Mean Corpuscular Volume 99 fl (79-97); Platelet Count 276 K/mm3 (140-440); Red Blood Count 2.88 M/mm3 (3.65-5.03); Red Cell Distribution Width 14.1 % (13.2-15.2)
[2021-12-19 07:27] LABS: INR 0.84 (0.87-1.13)
[2021-12-19 07:28] LABS: Partial Thromboplastin Time 27.8 Sec. (24.2-36.6)
[2021-12-19 07:36] LABS: Bacteria,Urine 4+ /HPF (Negative); Bilirubin,Urine NEG (Negative); Blood,Urine MOD (Negative); Color,Urine Yellow (Yellow); Mucus,Urine FEW /HPF; Urobilinogen,Urine < 2.0 mg/dL (<2.0)
[2021-12-19 07:40] LABS: Albumin 3.1 g/dL (3.9-5); Blood Urea Nitrogen 5 mg/dL (7-17); Hemolysis Index 0; Uric Acid 5.2 mg/dL (3.5-7.6)
[2021-12-19 07:41] LABS: Alanine Aminotransferase < 5 units/L (7-56); BUN/Creatinine Ratio 10
[2021-12-19 08:02] LABS: WBC,Urine > 182.0 /HPF (0.0-6.0)
--- NOTE | 2021-12-19 08:19 | Event Note ---
<TONIE CASTILLO - Last Filed: 12/19/21 08:18> Date: 12/19/21 Urine C&S ordered. Ordered Rocephin for UTI. Case management consult ordered (no PNC, + UDS, at home stillbirth 32 weeks gestation (abruption). <ANAMARIA SHAW - Last Filed: 12/19/21 20:22> The above note was written by TANNA Saldana. I was not consulted and therefore Rocephin cancelled and pt given ancef instead until urine culture obtained.
[2021-12-19] MEDS ORDERED: cefTRIAXone/NS 1 GM/50 ML 1 GM/50 ML BAG IV SCH (09:00)
--- NOTE | 2021-12-19 10:51 | Event Note ---
Date: 12/19/21 I was not consulted. No need for rocephin unless kidney infection suspected. Ancef coverage to be given until urine culture prelim obtained.
[2021-12-19] MEDS ORDERED: LACTATED RINGERS 1,000 ML ONE (11:10)
[2021-12-19] MEDS: FERROUS SULFATE 325 MG TAB PO SCH ×2 (11:17→21:54)
[2021-12-19] MEDS: IBUPROFEN 600 MG TAB PO SCH ×3 (12:08→21:54)
[2021-12-19] MEDS ORDERED: SODIUM CHLORIDE 0.9% 500 ML 500 ML IV SCH (20:00)
[2021-12-20] MEDS: IBUPROFEN 600 MG TAB PO SCH (03:52)
--- NOTE | 2021-12-20 07:56 | Progress Note ---
Assessment and Plan A: day 1 S/P out of hospital . Anemia. Grief process. UTI. Positive drug screen. P: Case management to see (already ordered). Continue Ancef. Urine culture pending. Iron supplementation. Patient to complete depression screen. Subjective - Subjective Date of service: 12/20/21 Principal diagnosis: day 1 S/P stillbirth out of hospital yesterday Interval history: Patient needs depression screen. Awaiting case management to see patient re: + UDS and grief process. Patient reports: appetite normal, voiding normally, pain well controlled, flatus, ambulating normally, no dizzy ambulation, no nauseated [place]: doing well Objective - Vital Signs Latest vital signs: Vital Signs Temp Pulse Resp BP Pulse Ox Pulse Ox 12/20/21 05:49 98.4 F 64 16 102/60 100 12/20/21 03:52 20 12/20/21 00:24 98.2 F 60 18 116/71 100 12/19/21 21:54 20 12/19/21 21:07 98.4 F 65 18 134/78 98 12/19/21 20:00 98 12/19/21 17:20 98 12/19/21 16:51 73 100 12/19/21 16:46 68 100 12/19/21 16:41 77 100 12/19/21 16:39 75 135/78 12/19/21 16:36 76 100 12/19/21 16:31 77 100 12/19/21 16:26 74 100 12/19/21 16:21 68 100 12/19/21 16:19 71 121/78 12/19/21 16:16 75 100 12/19/21 16:11 68 100 12/19/21 16:06 72 100 12/19/21 16:01 85 100 12/19/21 15:59 75 126/79 12/19/21 15:56 71 100 12/19/21 15:51 77 100 12/19/21 15:46 70 100 12/19/21 15:41 72 100 12/19/21 15:39 68 116/76 12/19/21 15:36 72 100 12/19/21 15:31 77 100 12/19/21 15:26 76 100 12/19/21 15:21 72 100 12/19/21 15:19 76 121/77 12/19/21 15:16 74 100 12/19/21 15:11 83 100 12/19/21 15:06 70 100 12/19/21 15:01 69 100 12/19/21 14:59 65 130/76 12/19/21 14:56 65 100 12/19/21 14:51 67 100 12/19/21 14:46 69 100 12/19/21 14:41 68 100 12/19/21 14:39 68 113/66 12/19/21 14:36 69 100 12/19/21 14:31 68 100 12/19/21 14:26 68 100 12/19/21 14:21 65 100 12/19/21 14:19 71 123/73 12/19/21 14:16 70 100 12/19/21 14:11 71 100 12/19/21 14:06 68 100 12/19/21 14:01 74 100 12/19/21 13:59 75 124/74 12/19/21 13:56 72 100 12/19/21 13:51 75 100 12/19/21 13:46 79 100 12/19/21 13:41 76 100 12/19/21 13:39 81 127/76 12/19/21 13:36 88 100 12/19/21 13:31 68 99 12/19/21 13:26 78 100 12/19/21 13:21 76 100 12/19/21 13:19 75 108/70 12/19/21 13:16 77 100 12/19/21 13:11 71 100 12/19/21 13:06 73 100 12/19/21 13:01 89 100 12/19/21 12:59 77 112/68 12/19/21 12:56 74 100 12/19/21 12:51 71 100 12/19/21 12:46 73 100 12/19/21 12:41 71 100 12/19/21 12:39 69 118/67 12/19/21 12:36 68 100 12/19/21 12:31 73 100 12/19/21 12:26 68 100 12/19/21 12:21 73 100 12/19/21 12:19 69 109/64 12/19/21 12:16 66 100 12/19/21 12:11 88 100 12/19/21 12:06 76 100 12/19/21 12:01 82 100 12/19/21 11:59 76 130/82 12/19/21 11:56 79 100 12/19/21 11:51 94 H 99 12/19/21 11:46 89 100 12/19/21 11:41 76 100 12/19/21 11:39 72 139/94 12/19/21 11:36 85 100 12/19/21 11:31 85 100 12/19/21 11:26 84 100 12/19/21 11:21 96 H 100 12/19/21 11:19 104 H 125/101 12/19/21 11:16 83 100 12/19/21 11:11 81 100 12/19/21 11:06 99 H 100 12/19/21 11:01 86 100 12/19/21 10:59 87 128/85 12/19/21 10:56 91 H 100 12/19/21 10:51 87 100 12/19/21 10:46 86 99 12/19/21 10:41 91 H 99 12/19/21 10:39 93 H 142/97 12/19/21 10:36 93 H 100 12/19/21 10:31 81 99 12/19/21 10:26 76 99 12/19/21 10:21 75 100 12/19/21 10:19 83 120/73 12/19/21 10:16 72 99 12/19/21 10:11 75 100 12/19/21 10:06 77 100 12/19/21 10:01 77 100 12/19/21 09:59 76 128/73 12/19/21 09:56 89 99 12/19/21 09:51 87 100 12/19/21 09:46 70 100 12/19/21 09:41 83 100 12/19/21 09:39 80 126/89 12/19/21 09:36 82 100 12/19/21 09:31 77 100 12/19/21 09:26 75 100 12/19/21 09:21 76 99 12/19/21 09:19 68 131/77 12/19/21 09:16 86 100 12/19/21 09:11 78 99 12/19/21 09:06 86 98 12/19/21 09:01 70 100 12/19/21 08:59 73 121/71 12/19/21 08:56 98 H 100 12/19/21 08:51 75 100 12/19/21 08:46 88 100 12/19/21 08:41 68 100 12/19/21 08:39 95 H 125/91 12/19/21 08:36 67 99 12/19/21 08:31 70 99 12/19/21 08:26 68 99 12/19/21 08:21 68 99 12/19/21 08:19 65 132/81 12/19/21 08:16 70 99 12/19/21 08:11 68 99 12/19/21 08:06 74 99 12/19/21 08:01 83 99 12/19/21 07:59 106 H 149/98 12/19/21 07:56 70 99 Intake and Output 12/19/21 12/19/21 12/20/21 15:59 23:59 07:59 Intake Total 100 100 420 Output Total 1200 400 Balance 100 -1100 20 Intake: IV 100 100 ceFAZolin 2 GM In NaCl 0. 100 100 9% 100 ml @ 200 mls/hr IV Q8H [facility] Rx#:[id number] Intake, Free Water 420 Output: Urine 1200 400 Indwelling Catheter 1200 Void 400 Other: Total, Output Amount 1200 400 - Exam Cardiovascular: Present: Regular rate, No murmurs Lungs: Present: Clear to auscultation Abdomen: Present: normal appearance, soft, normal bowel sounds. Absent: distention, tenderness, guarding, rigidity Uterus: Present: normal, firm, fundal height below umbilicus. Absent: bogginess, tenderness Extremities: Present: normal. Absent: tenderness, edema - Labs Labs: Abnormal lab results 12/19/21 Range/Units 04:45 Urine WBC (Auto) > 182.0 H (0.0-6.0) /HPF
[2021-12-20 08:48] VITALS: BP 116/68
--- NOTE | 2021-12-20 16:34 | Discharge Summary ---
Providers - Providers Date of Admission: 12/19/21 04:57 Date of discharge: 12/20/21 Attending physician: GRECIA NERI MD 12/19/21 08:16 Consult to Case Management [CONS] Routine Services Needed at Discharge: [employer] Comment:: + UDS, stillbirth, home delivery (abruption), no PNC Primary care physician: [employer] Hospitalization Reason for admission: IUP - ( demise delivered at home) Delivery: Episiotomy: none Laceration: none Other procedures: none complications: none Discharge diagnosis: intrapartum demise [place] baby: female Hospital course: Pt had of demise with placenta at 21wks per Dr. Nrei's admit note. Pt sustained no laceration. Pt had urine culture sent and urine culture with Gm negative rods noted after pt left hospital. Pt left hospital to take care of children at home per nurse report. Pt was seen by licensed master social worker prior to discharge. Message left on phone for pt to call hospital to be treated for her UTI per charge nurse on . Will plan to treat when pt comes to clinic. Condition at discharge: Good Disposition: LEFT AGAINST MEDICAL ADVICE Plan - Provider Discharge Summary Activity: routine Diet: routine Additional instructions: [] Smoking cessation referral if applicable(refer to patient education folder for contact #) [] Refer to [facility] Booklet Call your doctor immediately for: * Fever > 100.5 * Heavy vaginal bleeding ( >1 pad per hour) * Severe persistent headache * Shortness of breath * Reddened, hot, painful area to leg or breast * Drainage or odor from incision. * Keep incision clean and dry at all times and follow doctor's instructions regarding bathing/showering - Follow up plan Follow up: PRIMARY CARE, [Primary Care Provider] - 7 Days Forms: [facility] Discharge Summary
== END 2021-12-20 12:10 | disposition left against medical advice (07) | DRG 805 ==
LOC: LD 04:57 → OB 18:20
PROVIDERS: ADMIT Obstetrics & Gynecology Gynecology; ATTEND Obstetrics & Gynecology Gynecology
PROC: 10E0XZZ Delivery of Products of Conception, External Approach (ICD-10-PCS; principal; 2021-12-19)
DX: O36.4XX0 Maternal care for intrauterine death, not applicable or unspecified (principal); O45.93 Premature separation of placenta, unspecified, third trimester; Z37.1 Single stillbirth; O60.14X0 Preterm labor third trimester with preterm delivery third trimester, not applicable or unspecified; O86.20 Urinary tract infection following delivery, unspecified; O77.8 Labor and delivery complicated by other evidence of fetal stress; Z3A.32 32 weeks gestation of pregnancy; Z20.822 Contact with and (suspected) exposure to COVID-19; O77.0 Labor and delivery complicated by meconium in amniotic fluid; O62.3 Precipitate labor; O90.81 Anemia of the puerperium
CPT/HCPCS: 36415; 80053; 80307; 81001; 82570; 83615; 84156; 84550; 85027; 85610; 85730; 86850; 86900; 86901; 87076; 87086; 87186; 88305; G0378; J0690; J3010; J7040; U0003